=== PATIENT | male | born 1950 | race Caucasian/White ===

== ENCOUNTER 2018-06-02 07:54 | Day surgery (SDC) | payer OTHER ==
[2018-05-31 16:45] VITALS: BMI 27.7
[2018-06-02] MEDS ORDERED: PROPOFOL 20 ML ONE ×2 (08:09)
[2018-06-02] MEDS ORDERED: LIDOCAINE HCL/PF 2% SDV 5ML VIAL ONE (08:10)
[2018-06-02 12:23] VITALS: TEMP 97.6
[2018-06-02 12:33] VITALS: BP 110/53; PULSE 55
--- NOTE | 2018-06-03 11:55 | PATH ---
Surgical Pathology Report Patient Name: BELL CALABRESE Med. Rec. #: [id number] /Age/Gender: 1950 (Age: 67) / M Account: [id number] Location: [facility] AMBULATORY Taken: 06/02/2018 Received: 06/02/2018 Reported: 06/03/2018 Physicians: Tray Romero M.D. Specimen(s) Received CECUM Clinical History History of polyps Postoperative diagnosis: Polyp Final Diagnosis CECUM, POLYPECTOMY: TUBULAR ADENOMA. Electronically Signed Edna Salmon M.D. Gross Description Received in formalin, labeled "cecum" is a amaya, irregular portion of soft tissue measuring 0.5 cm. in greatest dimension. The specimen is submitted in toto in one cassette. /06/02/201806/02/2018
== END 2018-06-02 09:55 | disposition home or self-care (01) ==
LOC: FASU-ENDO 07:54
PROVIDERS: ATTEND Internal Medicine Gastroenterology
PROC: 0DBH8ZX Excision of Cecum, Via Natural or Artificial Opening Endoscopic, Diagnostic (ICD-10-PCS; principal; 2018-06-02 08:51)
DX: Z86.010 Personal history of colon polyps (principal); Z83.71 Family history of colonic polyps; D12.0 Benign neoplasm of cecum; K57.30 Diverticulosis of large intestine without perforation or abscess without bleeding
CPT/HCPCS: 88305-TC

== ENCOUNTER 2025-01-02 17:30 | Inpatient (IN) | payer OTHER ==
[2025-01-02] MEDS ORDERED: ACETAMINOPHEN INJECTION 100 ML ONE (17:55)
[2025-01-02] MEDS: SODIUM CHLORIDE 0.9% 500 ML INFUS.BAG IV ONE (18:08)
[2025-01-02] MEDS: ACETAMINOPHEN 1000 MG/100 ML BAG IVPB ONE (18:08)
[2025-01-02 18:24] LABS: HEMATOCRIT 39.9 % (35.4-49); HEMOGLOBIN 13.6 G/dL (11.7-16.9); MCH 31.7 pg (25.7-33.7); MCHC 34.2 g/dl (32.0-35.9); MEAN CELL VOLUME 92.7 fl (80-96); MEAN PLT VOLUME 9.1 fl (7.5-11.1); RDW 14.3 % (11.9-15.9); WHITE BLOOD COUNT 10.2 10^3/uL (4.0-10.8)
[2025-01-02 18:42] LABS: INR 1.07 (0.83-1.09); PROTHROMBIN TIME (PATIENT) 12.2 SEC (9.7-13.0)
[2025-01-02 18:50] LABS: ALBUMIN 4.1 g/dl (3.4-5.0); ALK PHOS 70 U/L (45-117); ANION GAP 11 mmol/L (4-13); CALCIUM 9.8 mg/dl (8.5-10.1); CHLORIDE 105 mmol/L (98-107); CO2 22 mmol/L (21-32); CREATININE 1.2 mg/dl (0.6-1.3); GLUCOSE,RANDOM 137 mg/dl (74-106); POTASSIUM 3.9 mmol/L (3.5-5.1); SGOT/AST 18 U/L (15-37); SGPT/ALT 13 U/L (7-52); SODIUM 138 mmol/L (136-145); TOT PROT 6.7 g/dl (6.4-8.2)
[2025-01-02] MEDS ORDERED: cefTRIAXone SODIUM 1 GM VIAL ONE (19:52)
[2025-01-02] MEDS: CEFTRIAXONE 1,000 MG in DEXTROSE 5%-WATER - 50 ML IVPB ONE (20:01)
[2025-01-02] MEDS ORDERED: AZITHROMYCIN 500 MG VIAL IVPB ONE (20:03)
[2025-01-02 20:15] LABS: VENOUS BASE EXCESS -3.7 mmol/L (-2-2); VENOUS O2 SATURATION 87.5 % (70-80); VENOUS PCO2 29.8 mmHg (38-52); VENOUS PH 7.431 (7.310-7.410)
[2025-01-02] MEDS: AZITHROMYCIN IVPB 500 MG in DEXTROSE 5%-WATER - 250 ML IVPB ONE (22:25)
[2025-01-02 23:01] VITALS: BMI 26.6
[2025-01-02 23:45] LABS: EPITHELIAL CELLS 0-5 /hpf
[2025-01-03] MEDS: FAMOTIDINE 20 MG TABLET PO ONE (01:46)
[2025-01-03] MEDS: TAMSULOSIN HCL 0.4 MG CAP PO SCH (08:33)
[2025-01-03] MEDS: CEFTRIAXONE 1 GM in DEXTROSE 5%-WATER - 50 ML IVPB SCH (09:34)
[2025-01-03] MEDS: ATENOLOL 50 MG TABLET (FP) PO SCH (09:34)
[2025-01-03] MEDS: AZITHROMYCIN IVPB 500 MG/250 ML BAG IVPB SCH (09:35)
[2025-01-03] MEDS: ACETAMINOPHEN 325 MG TABLET (FP) PO PRN (09:38)
[2025-01-03 09:40] LABS: CALCIUM 9.5 mg/dl (8.5-10.1); POTASSIUM 3.8 mmol/L (3.5-5.1)
[2025-01-03] MEDS ORDERED: BISOPROLOL FUMARATE 5 MG PO SCH (10:00)
[2025-01-03 10:25] LABS: BASO % 0.4 % (0-2.0); HEMATOCRIT 38.7 % (35.4-49); HEMOGLOBIN 12.5 GM/dL (11.7-16.9); LYMPH % 16.6 % (8-40); MCH 30.2 pg (25.7-33.7); MCHC 32.3 g/dl (32.0-35.9); MEAN CELL VOLUME 93.4 fl (80-96); MEAN PLT VOLUME 8.8 fl (7.5-11.1); MONO % 7.6 % (3.8-10.2); NEUT % 75.4 % (42.8-82.8); PLATELET COUNT 162 10^3/uL (134-434); RBC 4.14 M/mm3 (4.00-5.60); RDW 14.4 % (11.9-15.9); WHITE BLOOD COUNT 12.3 K/mm3 (4.0-10.0)
[2025-01-03] MEDS: VANCOMYCIN PREMIX 1.5 GM 1,500 MG/300 ML BAG IVPB ONE (15:24)
[2025-01-03] MEDS ORDERED: MEROPENEM 1 GM in DEXTROSE 5%-WATER 100 ML IVPB SCH (18:00)
[2025-01-04 09:00] LABS: ALBUMIN 3.3 g/dl (3.4-5.0); BILIRUBIN,TOTAL 0.9 mg/dl (0.2-1); CALCIUM 9.3 mg/dl (8.5-10.1); CREATININE 0.9 mg/dl (0.6-1.3); POTASSIUM 3.8 mmol/L (3.5-5.1); TOT PROT 5.6 g/dl (6.4-8.2)
[2025-01-04] MEDS: CEFTRIAXONE 1 GM in DEXTROSE 5%-WATER - 50 ML IVPB SCH (09:29)
[2025-01-04 09:32] LABS: BASO % 0.3 % (0-2.0); EOS % 0.1 % (0-4.5); HEMATOCRIT 35.6 % (35.4-49); HEMOGLOBIN 11.9 GM/dL (11.7-16.9); MCH 30.5 pg (25.7-33.7); MCHC 33.3 g/dl (32.0-35.9); MEAN CELL VOLUME 91.6 fl (80-96); MEAN PLT VOLUME 8.9 fl (7.5-11.1); MONO % 7.5 % (3.8-10.2); NEUT % 74.1 % (42.8-82.8); PLATELET COUNT 147 10^3/uL (134-434); RBC 3.89 M/mm3 (4.00-5.60); RDW 14.1 % (11.9-15.9); WHITE BLOOD COUNT 10.6 K/mm3 (4.0-10.0)
[2025-01-05 08:58] LABS: BASO % 0.4 % (0-2.0); EOS % 0.6 % (0-4.5); HEMATOCRIT 37.5 % (35.4-49); HEMOGLOBIN 12.8 GM/dL (11.7-16.9); LYMPH % 21.9 % (8-40); MCH 31.3 pg (25.7-33.7); MCHC 34.2 g/dl (32.0-35.9); MEAN CELL VOLUME 91.4 fl (80-96); MEAN PLT VOLUME 8.9 fl (7.5-11.1); MONO % 6.7 % (3.8-10.2); NEUT % 70.4 % (42.8-82.8); PLATELET COUNT 184 10^3/uL (134-434); RDW 14.2 % (11.9-15.9); WHITE BLOOD COUNT 8.9 K/mm3 (4.0-10.0)
[2025-01-05 09:03] LABS: ALBUMIN 3.5 g/dl (3.4-5.0); BILIRUBIN,TOTAL 0.7 mg/dl (0.2-1); CALCIUM 9.4 mg/dl (8.5-10.1); CREATININE 0.9 mg/dl (0.6-1.3); POTASSIUM 3.7 mmol/L (3.5-5.1); TOT PROT 5.9 g/dl (6.4-8.2)
[2025-01-06] MEDS: CEFTRIAXONE 2 GM-D5W BAG 2 GM/50 ML BAG IVPB SCH (09:26)
[2025-01-06 22:10] VITALS: RESP 18
[2025-01-07 14:07] VITALS: BP 128/74; PULSE 66; TEMP 97.8
== END 2025-01-07 14:40 | disposition home or self-care (01) | DRG 862 ==
LOC: FER 17:30 → FM/S 21:06 → INTOOBSV 21:06 → OBSVTOIN 01-05 08:25
PROVIDERS: ADMIT Student in an Organized Health Care Education/Training Program
DX: T81.40XA Infection following a procedure, unspecified, initial encounter (principal); J18.9 Pneumonia, unspecified organism; J98.11 Atelectasis; R78.81 Bacteremia; I10 Essential (primary) hypertension; B95.0 Streptococcus, group A, as the cause of diseases classified elsewhere; Y83.8 Other surgical procedures as the cause of abnormal reaction of the patient, or of later complication, without mention of misadventure at the time of the procedure
CPT/HCPCS: 0241U-QW; 36415; 71045-TC-FY; 71250-TC; 76705-TC; 80048; 80053; 81003; 81015; 82803; 83605; 84484; 85025; 85027; 85610; 85730; 86850; 86900; 86901; 87040; 87086; 87186; 87899; 93005; 93306-TC; 97116-GP; 97162-GP; 99285-25; G0378; J0131